=== PATIENT | male | born 1955 | race Caucasian/White ===

== ENCOUNTER → 2018-08-08 | Outpatient (CLI) | payer MEDICARE ==
[~2018-08-08] MED LIST: ALLOPURINOL 30300 M1 PO; ARIXTRA SQ; ASPIRIN325 PO; COLACE100 MG; COLCHICINE 0.60.6 M1 PO; LISINOPRIL-HCT1 EAC1 PO; NORCO 5-325 TA1 EACH PO; OXYCONTIN10 M1; OXYCONTIN10 M1 PO; OXYIR 5 MG CAPSU5 M1 PO; OXYIR5 MG; PRINZIDE 20-121 EACH PO; STOOL SOFTENER1 EAC2 PO; XARELTO10 MG PO
== END ==
LOC: M.MRI 08-06 08:30
DX: M47.22 Other spondylosis with radiculopathy, cervical region (principal); M50.121 Cervical disc disorder at C4-C5 level with radiculopathy; M48.02 Spinal stenosis, cervical region; M25.78 Osteophyte, vertebrae